=== PATIENT | male | born 1975 | race Caucasian/White ===

== ENCOUNTER 2018-08-08 08:00 | Emergency (ER) | payer SELFPAY ==
--- NOTE | 2018-08-08 08:22 | EDM.PDOC ---
ED HPI GENERAL MEDICAL PROBLEM - General Chief Complaint: General Stated Complaint: SICK Time Seen by Provider: 08/08/18 08:06 Source of Information: Reports: Patient History Limitations: Reports: No Limitations - History of Present Illness INITIAL COMMENTS - FREE TEXT/NARRATIVE: History of present illness: []Patient has had 4 days of productive cough with green sputum, sore throat , fevers initially, vomiting, diarrhea Review of systems: As per history of present illness and below otherwise all systems reviewed and negative. Past medical history: As per history of present illness and as reviewed below otherwise noncontributory. Surgical history: As per history of present illness and as reviewed below otherwise noncontributory. Social history: No reported history of drug or alcohol abuse. Family history: As per history of present illness and as reviewed below otherwise noncontributory. Physical exam: General: Well developed, well nourished in NAD HEENT: Atraumatic, normocephalic, pupils reactive, negative for conjunctival pallor or scleral icterus, mucous membranes moist, throat clear, neck supple, nontender, trachea midline. Lungs: Clear to auscultation, breath sounds equal bilaterally, chest nontender. Heart: S1S2, regular, negative for clicks, rubs, or JVD. Abdomen: NABS, Soft, nondistended, nontender. Negative for masses or hepatosplenomegaly. Negative for costovertebral tenderness. Pelvis: Stable nontender. Genitourinary: Deferred. Rectal: Deferred. Extremities: Atraumatic, negative for cords or calf pain. Neurovascular unremarkable. Neuro: Awake, alert, oriented. Cranial nerves II through XII unremarkable. Cerebellum unremarkable. Motor and sensory unremarkable throughout. Exam nonfocal. Skin:warm and dry Diagnostics: Influenza, rapid strep negative, chest x-ray, vital signs stable Therapeutics: Zofran ODT ED Course: Unremarkable Impression: Acute bronchitis Prescriptions: Z-Blade, albuterol inhaler and Zofran Plan: Follow-up with primary care return if symptoms worsen or change. Definitive disposition and diagnosis as appropriate pending reevaluation and review of above. Chest Pain Score (Numeric/FACES): 5 - Related Data Allergies Allergy/AdvReac Type Severity Reaction Status Date / Time Penicillins Allergy Severe Anaphylactic Verified 08/08/18 08:14 Shock amoxicillin Allergy Intermediate Anaphylactic Verified 08/08/18 08:14 Shock Home Meds: Home Meds Albuterol [Ventolin HFA] 2 puff INH Q4HR PRN #1 inhaler 08/08/18 [Rx] Azithromycin [Zithromax] 250 mg PO DAILY #6 tab 08/08/18 [Rx] Ondansetron HCl [Zofran] 4 mg PO Q4HR #12 tablet 08/08/18 [Rx] Ziprasidone HCl [Geodon] 20 mg PO DAILY 08/08/18 [History] Past Medical History HEENT History: Reports: None Cardiovascular History: Reports: None Respiratory History: Reports: None Gastrointestinal History: Reports: None Genitourinary History: Reports: None Musculoskeletal History: Reports: None Neurological History: Reports: None Psychiatric History: Reports: Mood Swings, Psych Hospitalization(s) Endocrine/Metabolic History: Reports: None Hematologic History: Reports: None Immunologic History: Reports: None Oncologic (Cancer) History: Reports: None Dermatologic History: Reports: None - Infectious Disease History Infectious Disease History: Reports: None - Past Surgical History Head Surgeries/Procedures: Reports: None Cardiovascular Surgical History: Reports: None Respiratory Surgical History: Reports: None Male Surgical History: Reports: None Social & Family History - Tobacco Use Years of Tobacco use: 20 Packs/Tins Daily: 1 - Caffeine Use Caffeine Use: Reports: None - Recreational Drug Use Recreational Drug Use: No ED ROS GENERAL - Review of Systems Review Of Systems: ROS reveals no pertinent complaints other than HPI. ED EXAM, GENERAL - Physical Exam Exam: See Below (See history of present illness) Course - Vital Signs Last Recorded V/S: Last Vital Signs Temp 97.8 F 08/08/18 08:11 Pulse 60 08/08/18 08:11 Resp 20 08/08/18 08:11 BP 140/83 08/08/18 08:11 Pulse Ox 95 08/08/18 08:11 - Orders/Labs/Meds Orders: Active Orders 24 hr Category Date Time Status Chest 2V [CR] Stat Exams 08/08/18 08:27 Ordered CULTURE STREP A CONFIRMATION [RM] Stat Lab 08/08/18 08:17 Results STREP SCRN A RAPID W CULT CONF [RM] Stat Lab 08/08/18 08:17 Results Meds: Medications Discontinued Medications Generic Name Dose Route Start Last Admin Trade Name Freq PRN Reason Stop Dose Admin Ondansetron HCl 4 mg 08/08/18 08:42 Zofran Odt PO 08/08/18 08:43 ONETIME ONE Departure - Departure Time of Disposition: 08:50 Disposition: Home, Self-Care 01 Condition: Good Clinical Impression: Acute bronchitis - Discharge Information *PRESCRIPTION DRUG MONITORING PROGRAM REVIEWED*: No *COPY OF PRESCRIPTION DRUG MONITORING REPORT IN PATIENT JACKY: No Prescriptions: Albuterol [Ventolin HFA] 2 puff INH Q4HR PRN #1 inhaler PRN Reason: Shortness Of Breath Ondansetron HCl [Zofran] 4 mg PO Q4HR #12 tablet Azithromycin [Zithromax] 250 mg PO DAILY #6 tab Referrals: PCP,None [Primary Care Provider] - Forms: ED Department Discharge Additional Instructions: The following information is given to patients seen in the emergency department who are being discharged to home. This information is to outline your options for follow-up care. We provide all patients seen in our emergency department with a follow-up referral. The need for follow-up, as well as the timing and circumstances, are variable depending upon the specifics of your emergency department visit. If you don't have a primary care physician on staff, we will provide you with a referral. We always advise you to contact your personal physician following an emergency department visit to inform them of the circumstance of the visit and for follow-up with them and/or the need for any referrals to a consulting specialist. The emergency department will also refer you to a specialist when appropriate. This referral assures that you have the opportunity for follow-up care with a specialist. All of these measure are taken in an effort to provide you with optimal care, which includes your follow-up. Under all circumstances we always encourage you to contact your private physician who remains a resource for coordinating your care. When calling for follow-up care, please make the office aware that this follow-up is from your recent emergency room visit. If for any reason you are refused follow-up, please contact the [facility] Emergency Department at and asked to speak to the emergency department charge nurse. Take meds as directed follow-up with primary care return if symptoms worsen or change. [facility] Primary [facility] [address] [place] [phone] - My Orders Last 24 Hours: My Active Orders 08/08/18 08:17 CULTURE STREP A CONFIRMATION [RM] Stat STREP SCRN A RAPID W CULT CONF [RM] Stat 08/08/18 08:27 Chest 2V [CR] Stat - Assessment/Plan Last 24 Hours: My Active Orders 08/08/18 08:17 CULTURE STREP A CONFIRMATION [RM] Stat STREP SCRN A RAPID W CULT CONF [RM] Stat 08/08/18 08:27 Chest 2V [CR] Stat
[2018-08-08] MEDS ORDERED: Ondansetron 4 MG Tab.DIS PO ONE (08:42)
--- NOTE | 2018-08-09 19:26 | CR ---
EXAM DATE: 08/08/18 PATIENT'S AGE: 43 Patient: ANDRÉS NICOLAS Facility: [place], [place] Site . Site : [id number] Study: XRay Chest [id number]/13/2019 8:51:18 AM Ordering Physician: Hudson Faulkner Final Report: INDICATION: cough/sob/chest pain for 4 days INDICATION: Cough. Shortness of breath. Chest pain. TECHNIQUE: Chest 2 views. COMPARISON: None FINDINGS: Cardiovascular and mediastinum: Heart size and vasculature are normal in caliber and appearance. Mediastinum is within normal limits. Lungs and pleural spaces: Lungs are clear. No sign of infiltrate or mass. No sign of pleural effusion. No pneumothorax. Bones and soft tissues: No significant findings. IMPRESSION: Lungs are clear. Dictated by Gabriel Luis MD @ 08/08/2018 8:54:24 AM Dictated by: Gabriel Luis MD @ 08/08/2018 08:54:29 (Electronic Signature) Report Signed by Proxy. [facility] DIVISIONLupe
== END 2018-08-08 09:07 | disposition home or self-care (01) ==
LOC: MW.ED 08:00
DX: J20.9 Acute bronchitis, unspecified (principal); F17.290 Nicotine dependence, other tobacco product, uncomplicated; Z88.0 Allergy status to penicillin; Z88.1 Allergy status to other antibiotic agents; Z79.899 Other long term (current) drug therapy
CPT/HCPCS: 71046; 87081; 87804; 87880; 96372; 99284; A9270; 99283